=== PATIENT | female | born 1960 | race Asian ===

== ENCOUNTER 2018-04-26 08:14 | Day surgery (SDC) | payer OTHER ==
[2018-04-26] MEDS: MIDAZOLAM 1 MG/ML 2 ML INJ (11:30)
[2018-04-26] MEDS: SOD CHLORIDE 0.9% 1,000 ML IV (11:30)
[2018-04-26] MEDS: FENTAnyl 50 MCG/ML VIAL (11:30)
[2018-04-26] MEDS: HEPARIN 1000 UNITS/ML 10 ML INJ (11:40)
[2018-04-26] MEDS: LIDOCAINE 1%/EPI 30 ML INJ (11:40)
[2018-04-26] MEDS: POLYMYXIN/BACITRACIN 1L IRRIG IRR (11:50)
[2018-04-26] MEDS ORDERED: HYDROCODONE/APAP (5/325) TAB PO (12:30)
== END 2018-04-26 14:18 | disposition home or self-care (01) ==
LOC: SDS 08:14
DX: C56.2 Malignant neoplasm of left ovary (principal)
CPT/HCPCS: 36561; 76942

== ENCOUNTER 2019-01-08 09:31 | Day surgery (SDC) | payer OTHER ==
[2019-01-08] MEDS ORDERED: POLYMYXIN/BACITRACIN 1L IRRIG (11:29)
[2019-01-08] MEDS ORDERED: LIDOCAINE 1%/EPI (1:100,000) (MDV) 20 ML (12:01)
[2019-01-08] MEDS ORDERED: FENTAnyl 50 MCG/ML VIAL (12:13)
[2019-01-08] MEDS ORDERED: SOD CHLORIDE 0.9% 500 ML (12:13)
[2019-01-08] MEDS ORDERED: MIDAZOLAM 1 MG/ML 2 ML INJ (12:13)
== END 2019-01-08 14:39 | disposition home or self-care (01) ==
LOC: CCL 09:31 → SDS 09:31 → CCL 14:39
DX: Z45.2 Encounter for adjustment and management of vascular access device (principal); Z85.43 Personal history of malignant neoplasm of ovary
CPT/HCPCS: 36590